=== PATIENT | male | born 1945 | race Caucasian/White ===

== ENCOUNTER 2017-01-12 21:14 | Emergency (ER) | payer OTHER, MEDICARE ==
[2017-01-12 21:19] VITALS: BP 167/99; PULSE 89; TEMP 98.3; BMI 25.6
--- NOTE | 2017-01-12 21:22 | PDOC ---
History of Present Illness - General History Source: Patient Exam Limitations: No Limitations - History of Present Illness Initial Comments: 01/12/17 21:43 The patient is a 71 year old male with significant past medical history of esophageal cancer (s/p gastric sleeve) and hypertension who presents to the emergency department with lower abdominal pain since yesterday. Patient notes that the pain is cramp like, intermittent, localized to the lower abdomen and radiates to the shoulders at worse intensity. Patient states that yesterday he had small bowel movement with no bowel movements today. He denies any rectal bleeding, vomiting or diarrhea. He denies any fever or chills. PAST MEDICAL HISTORY: esophageal cancer, hypertension PAST SURGICAL HISTORY: gastric sleeve FAMILY HISTORY: no pertinent history SOCIAL HISTORY: patient lives with family and is employed. MEDICATIONS: reviewed ALLERGIES: as per nursing notes General: No fevers or chills, no weakness, no weight loss HEENT: No change in vision. No sore throat,. No ear pain Cardiovascular: No chest pain or shortness of breath Respiratory: No cough, or wheezing. Gastrointestinal: +abdominal pain. No nausea, vomiting, diarrhea or constipation , No rectal bleeding Genitourinary: No dysuria, hematuria, or frequency Musculoskeletal: No joint or muscle pain or swelling Neurologic: No headache, vertigo, dizziness or loss of consciousness Skin: No rashes or easy bruising Allergic: no skin or latex allergy All other systems reviewed and normal General: Well-nourished well-developed individual, no acute distress HEENT: Throat: Normal, tonsils normal, no erythema or exudate Neck: Supple, no meningeal signs, no lymphadenopathy Eyes::Pupils equal reactive and round, extraocular motion intact Chest: Nontender to palpation Cardiac: S1-S2 normal, regular rate and rhythm, no murmurs rubs or gallops Respiratory: Lungs clear to auscultation bilateral Abdomen: (+)Soft, Slightly distended abdomen, decreased type H bowel sounds, no guarding or rebound. Extremities: Warm, dry, no cyanosis, clubbing, or edema Skin: No rashes Neuro: Alert and oriented x3, nonfocal exam, grossly intact, normal gait Psych: Normal mood and affect Documentation prepared by ZO Garcia, acting as durable medical equipment technician for Sari Allen MD. <Diane Padron - Last Filed: 01/12/17 21:49> - General History Source: Patient Exam Limitations: No Limitations - History of Present Illness Initial Comments: 01/13/17 01:08 Assessment and plan: This is a 71-year-old male who comes in complaining of abdominal pain. Patient has an extensive and somewhat complicated history of esophageal cancer with a gastric pull-through and partial resection. Patient is complaining of no bowel movement 2 days. Patient on his flat and upright appears to have a moderate amount of constipation. Otherwise patient's labs are normal. Patient had a CT scan that shows no acute intra-abdominal pathology. Discussed with patient options of being admitted overnight for observation patient really would refer to go home and try to do an enema and I will send him home with some mag citrate as well. Patient was counseled that if he does starts vomiting develops a fever his symptoms are not improved by the mag citrate and an enema that he should return to the ER for reevaluation. Patient does have an appointment with his doctor on Saturday. <Sari Allen I - Last Filed: 01/13/17 01:11> - General Chief Complaint: Pain Stated Complaint: ABD PAIN Time Seen by Provider: 01/12/17 21:17 Past History <Diane Padron - Last Filed: 01/12/17 21:49> - Past Medical History Cancer: Yes (h/o esophageal cancer) GI Disorders: Yes (acid reflux) HTN: Yes - Psycho/Social/Smoking Cessation Hx Anxiety: No Suicidal Ideation: No Smoking History: Never smoked Information on smoking cessation initiated: No Hx Alcohol Use: No Drug/Substance Use Hx: No <Sari Allen I - Last Filed: 01/13/17 01:11> - Past Medical History Allergies/Adverse Reactions: Allergies Allergy/AdvReac Type Severity Reaction Status Date / Time No Known Allergies Allergy Verified 01/12/17 21:16 Home Medications: Ambulatory Orders Amlodipine Besylate [Norvasc -] 5 mg PO DAILY 03/24/15 Ranitidine HCl [Zantac] 150 mg PO DAILY 03/24/15 Sucralfate [Carafate] 1 gm PO DAILY 03/24/15 *Physical Exam - Vital Signs Last Vital Signs Temp Pulse Resp BP Pulse Ox 98.3 F 89 18 167/99 99 01/12/17 21:15 01/12/17 21:15 01/12/17 21:15 01/12/17 21:15 01/12/17 21:15 <Diane Padron - Last Filed: 01/12/17 21:49> - Vital Signs Last Vital Signs Temp Pulse Resp BP Pulse Ox 98.3 F 89 18 167/99 99 01/12/17 21:15 01/12/17 21:15 01/12/17 21:15 01/12/17 21:15 01/12/17 21:15 <Sari Allen I - Last Filed: 01/13/17 01:11> ED Treatment Course - LABORATORY CBC & Chemistry Diagram: 01/12/17 21:42 01/12/17 21:42 <Diane Padron - Last Filed: 01/12/17 21:49> - LABORATORY CBC & Chemistry Diagram: 01/12/17 21:42 01/12/17 21:42 <Sari Allen I - Last Filed: 01/13/17 01:11> *DC/Admit/Observation/Transfer <Diane Padron - Last Filed: 01/12/17 21:49> - Discharge Dispostion Admit: No <Sari Allen I - Last Filed: 01/13/17 01:11> Diagnosis at time of Disposition: Abdominal pain Qualifiers: Abdominal location: lower abdomen, unspecified Qualified Code(s): R10.30 - Lower abdominal pain, unspecified - Discharge Dispostion Disposition: HOME Condition at time of disposition: Stable - Patient Instructions Additional Instructions: Purchase an [id number] enema from the pharmacy either a fleets or oil retention enema and use as directed. In addition to that in the morning and drink the mag citrate that you were given in the emergency room. If you develop a fever, started vomiting or worsening symptoms return to the emergency room. Return to the emergency department immediately with ANY new, persistent or worsening symptoms. Continue any medications as previously prescribed by your physician. You should follow up with your primary doctor as soon as possible regarding today's emergency department visit. . Please make sure your doctor reviews the results of your emergency evaluation. Thank you for coming to the Emergency Department today for your care. It was a pleasure to see you today. Please note that your evaluation is INCOMPLETE until you follow-up with your doctor.
[2017-01-12 21:58] LABS: BASOPHIL 1.1 % (0-2.0); EOSINOPHIL 1.7 % (0-4.5); MCH 30.8 pg (25.7-33.7); MCHC 34.1 g/dl (32.0-35.9); MEAN CELL VOLUME 90.4 fl (80-96); MEAN PLT VOLUME 7.4 fl (7.5-11.1); NEUTROPHILS 66.8 % (42.8-82.8); PLATELET COUNT 185 K/MM3 (134-434); RDW 12.4 % (11.9-15.9); WHITE BLOOD COUNT 7.4 K/mm3 (4.0-10.8)
[2017-01-12 22:12] LABS: ALBUMIN 4.2 g/dl (3.5-5.0); ALK PHOS 39 U/L (32-92); ANION GAP 8 (8-16); BILIRUBIN,TOTAL 0.8 mg/dl (0.2-1.0); CALCIUM 9.4 mg/dl (8.4-10.2); CO2 26 mmol/L (22-28); CREATININE 0.8 mg/dl (0.6-1.3); GLUCOSE,RANDOM 96 mg/dl (74-106); SGOT/AST 23 U/L (10-42); SGPT/ALT 18 U/L (10-40); TOT PROT 6.7 g/dl (6.4-8.3)
[2017-01-12] MEDS ORDERED: SODIUM CHLORIDE 1,000 ML IV ONE (22:21)
[2017-01-12] MEDS ORDERED: HYOSCYAMINE SULFATE 0.125 MG *ODT PO ONE (22:22)
[2017-01-12] MEDS ORDERED: HYOSCYAMINE SULFATE 0.125 MG *ODT ONE (22:24)
[2017-01-12] MEDS ORDERED: HYDROmorphone HCL CARPU-JECT 1 MG/1 ML DISP.SYRIN IVPUSH ONE (23:45)
[2017-01-12] MEDS ORDERED: HYDROmorphone HCL CARPU-JECT 1 MG/1 ML DISP.SYRIN ONE (23:48)
[2017-01-13] MEDS ORDERED: MAGNESIUM CITRATE 300 ML BOTTLE PO ONE (01:08)
[2017-01-13] MEDS ORDERED: MAGNESIUM CITRATE 300 ML BOTTLE ONE (01:12)
== END 2017-01-13 01:23 | disposition home or self-care (01) ==
LOC: FER 21:14
PROC: 3E033NZ Introduction of Analgesics, Hypnotics, Sedatives into Peripheral Vein, Percutaneous Approach (ICD-10-PCS; principal; 2017-01-12)
PROC: 3E0337Z Introduction of Electrolytic and Water Balance Substance into Peripheral Vein, Percutaneous Approach (ICD-10-PCS; 2017-01-12)
DX: R10.30 Lower abdominal pain, unspecified (principal); Z85.01 Personal history of malignant neoplasm of esophagus; Z98.84 Bariatric surgery status; I10 Essential (primary) hypertension
CPT/HCPCS: 36415; 71020-TC; 74020-TC; 74177-TC; 80053; 82550; 83690; 83880; 84484; 85025; 93005; 99283-25; G0378

== ENCOUNTER 2017-01-13 13:32 | Observation (INO) | payer OTHER, MEDICARE ==
[2017-01-13] MEDS ORDERED: FAMOTIDINE 20 MG/50 ML IVPB 50 ML IVPB ONE ×2 (13:48→14:31)
[2017-01-13] MEDS ORDERED: SODIUM CHLORIDE 500 ML IV ONE (13:48)
[2017-01-13] MEDS ORDERED: METOCLOPRAMIDE HCL INJECTION 10 MG/2 ML VIAL IVPB ONE (13:48)
--- NOTE | 2017-01-13 14:20 | PDOC ---
History of Present Illness <Valery Mcmahan - Last Filed: 01/13/17 16:41> - General History Source: Patient, Old Records Exam Limitations: No Limitations - History of Present Illness Initial Comments: 01/13/17 14:14 71-year-old male with history of esophageal CA status post resection 3 years ago with colon reconstruction presents for another visit for feeling generally unwell in the setting of lower abdominal pain. Patient was in his usual state of health, 2 days ago began developing lower abdominal discomfort in the setting of constipation, was seen here last night and blood tests/urinalysis/ CAT scan of the abdomen and pelvis showed large diaphragmatic hernia with trace pleural effusions, but otherwise no acute pathology within the abdomen. The patient was discharged with recommendations to take an enema last night, which he did without relief. He is now complaining of persistent discomfort cigarettes lower abdomen, feeling generally unwell - "maybe I'm getting dehydrated" - and presents again for a visit. The patient is scheduled to see his specialists at [facility] tomorrow, was actually scheduled for a CAT scan tomorrow as well. No specific cardiopulmonary complaints with regard to the trace effusions previously seen on CAT scan. Patient reports baseline dyspnea climbing stairs since the surgery 3 years ago, denies any chest pain or new shortness of breath, denies any fever/chills/night sweats/weight loss, denies any palpitations. <Bautista Owens - Last Filed: 01/13/17 16:48> - General Chief Complaint: Respiratory Stated Complaint: NOT FEELING GOOD Time Seen by Provider: 01/13/17 13:36 Past History <BlaynejustynaValery - Last Filed: 01/13/17 16:41> - Past Medical History Cancer: Yes (h/o esophageal cancer) GI Disorders: Yes (acid reflux) HTN: Yes - Psycho/Social/Smoking Cessation Hx Anxiety: No Suicidal Ideation: No Smoking History: Former smoker Have you smoked in the past 12 months: No If you are a former smoker, when did you quit?: IN COLLEGE Information on smoking cessation initiated: No Hx Alcohol Use: No Drug/Substance Use Hx: No <Bautista Owens - Last Filed: 01/13/17 16:48> - Past Medical History Allergies/Adverse Reactions: Allergies Allergy/AdvReac Type Severity Reaction Status Date / Time No Known Allergies Allergy Verified 01/13/17 13:39 Home Medications: Ambulatory Orders Amlodipine Besylate [Norvasc -] 5 mg PO DAILY 03/24/15 Ranitidine HCl [Zantac] 150 mg PO DAILY 03/24/15 Sucralfate [Carafate] 1 gm PO DAILY 03/24/15 Review of Systems - Review of Systems Constitutional: No: Chills, Fever Respiratory: Yes: SOB with Exertion (chronic). No: Cough Cardiac (ROS): No: Chest Pain, Edema, Palpitations ABD/GI: Yes: Constipated. No: Diarrhea, Nausea, Vomiting : No: Dysuria, Frequency, Flank Pain, Hematuria All Other Systems: Reviewed and Negative <Bautista Owens - Last Filed: 01/13/17 16:48> *Physical Exam - Vital Signs Last Vital Signs Temp Pulse Resp BP Pulse Ox 98.1 F 92 H 18 150/98 95 01/13/17 13:41 01/13/17 13:41 01/13/17 13:41 01/13/17 14:29 01/13/17 13:41 <Valery Mcmahan - Last Filed: 01/13/17 16:41> - Vital Signs Last Vital Signs Temp Pulse Resp BP Pulse Ox 98.1 F 92 H 18 151/100 95 01/13/17 13:41 01/13/17 13:41 01/13/17 13:41 01/13/17 13:41 01/13/17 13:41 - Physical Exam Comments: 01/13/17 14:17 Afebrile, normal vital signs. GENERAL: The patient is awake, alert, and fully oriented, in no acute distress whatsoever, he is comfortable and ambulating about the emergency department speaking full sentences. HEAD: Normal with no signs of trauma. EYES: PERRL, EOMI, sclera anicteric, conjunctiva clear with no pallor. ENT: oropharynx clear without exudates. Moist mucous membranes. NECK: Normal range of motion, supple without lymphadenopathy, JVD, or masses. LUNGS: Breath sounds equal, clear to auscultation bilaterally. No wheeze/ crackles. HEART: Occasionally irregular with normal rate, question premature beats, otherwise normal S1 and S2 without murmur or rub. ABDOMEN: Healed surgical scars. Soft/nontender/nondistended. BS wnl. No guarding or rebound. No palpable masses. No hepatosplenomegaly. No CVA tenderness. EXTREMITIES: Normal range of motion, no edema. 2+ distal pulses. No cords, erythema, or tenderness. NEUROLOGICAL: Cranial nerves II through XII grossly intact. Normal speech, normal gait. PSYCH: Normal mood, normal affect. SKIN: Warm, Dry, no rashes or lesions noted. <Bautista Owens - Last Filed: 01/13/17 16:48> Heart Score/ECG Review #1 ECG reviewed & interpreted by me at: 14:24 General ECG Interpretation: Sinus Rhythm (with APCs noted), Normal Rate (86), Normal Intervals, No acute ischemic changes <Bautista Owens - Last Filed: 01/13/17 16:48> ED Treatment Course - LABORATORY CBC & Chemistry Diagram: 01/13/17 14:37 01/13/17 14:37 - ADDITIONAL ORDERS Additional order review: Laboratory Results 01/13/17 01/13/17 15:30 14:37 Sodium 135 L Potassium 3.3 L Chloride 100 Carbon Dioxide 28 Anion Gap 7 L BUN 8 D Creatinine 0.6 D Creat Clearance w eGFR > 60 Random Glucose 124 H D Calcium 9.0 Total Bilirubin 1.1 H D AST 26 ALT 26 D Alkaline Phosphatase 43 Creatine Kinase 108 Troponin I < 0.03 L Total Protein 6.8 Albumin 4.0 Lipase < 22 L 01/13/17 14:37 RBC 5.04 MCV 90.2 MCHC 34.2 RDW 12.6 MPV 7.5 Neutrophils % 73.7 Lymphocytes % 15.8 D Monocytes % 8.0 Eosinophils % 1.0 Basophils % 1.5 - Medications Given in the ED: ED Medications Discontinued Medications Generic Name Dose Route Start Last Admin Trade Name Freq PRN Reason Stop Dose Admin Famotidine/Sodium Chloride 50 mls @ 100 mls/hr 01/13/17 13:48 01/13/17 14:36 Pepcid 20 Mg Premixed Ivpb - IVPB 01/13/17 14:17 100 mls/hr ONCE ONE Administration Sodium Chloride 500 mls @ 500 mls/hr 01/13/17 13:48 01/13/17 14:29 Normal Saline - IV 01/13/17 14:47 500 mls/hr ONCE ONE Administration Metoclopramide HCl 10 mg 01/13/17 13:48 01/13/17 14:36 Reglan Injection - IVPB 01/13/17 13:49 10 mg ONCE ONE Administration <Valery Mcmahan - Last Filed: 01/13/17 16:41> - LABORATORY CBC & Chemistry Diagram: 01/13/17 14:37 01/13/17 14:37 <RomanBautista - Last Filed: 01/13/17 16:48> Medical Decision Making - Medical Decision Making Called Dr. Oliveros @ 16:35 and case was discussed. <Valery Mcmahan - Last Filed: 01/13/17 16:41> - Medical Decision Making 01/13/17 14:18 71-year-old male with history of esophageal resection and reconstruction with transverse colon presents with lower abdominal pain in the setting of constipation for 2 days. Patient had a normal workup about 15 hours ago including a normal CAT scan, which is reassuring. His exam has no red flags or peritoneal findings, he is well-appearing though he states he feels generally unwell. Question early infectious process, no evidence for primary cardiopulmonary process given his long-standing symptoms. Will recheck labs to confirm any progression of an early process No indication at this time to repeat imaging, especially since the patient has CAT scans scheduled for tomorrow. If he does have a CT chest scheduled, that would be helpful in further identifying the diaphragmatic hernia and trace effusions. But his complaints of lower abdominal pain are not related to these findings. Trial of IV fluids, antacid, antiemetic Reassess and dispo accordingly 01/13/17 15:19 Na 135, ? mild dehydration. Remaining labs reassuring and wnl, no leukocytosis ( 8 currently, 7.4 last night). Awaiting lipase, will reassess and dispo. 01/13/17 15:34 Pt now complaining predominantly of feeling short of breath and a feeling of breathlessness. No chest pain. In light of trace effusions and large diaphragmatic hernia, ? whether this is all hernia or cardiopulmonary process. Would check CT chest with contrast but had IV less than 24h ago. Given symptoms , will monitor on obs tele overnight with plans for CT chest tomorrow. Pt agrees. Trop/BNP added to prior workup, will f/u then proceed with admission. Dr. Boucher is PMD. 01/13/17 16:05 On my prelim review of the CXR, there is large hiatal hernia with air/fluid levels, obscuring the angles but otherwise no clear infiltrate. Trop pending, then will call [facility] for admission. 01/13/17 16:47 Dr. Boucher admits to hospitalist on weekends. Accepted for obs tele by MICHELLE Sprague, Dr. Nathan. <Bautista Owens - Last Filed: 01/13/17 16:48> *DC/Admit/Observation/Transfer <Valery Mcmahan - Last Filed: 01/13/17 16:41> - Discharge Dispostion Admit: Yes <Bautista Owens - Last Filed: 01/13/17 16:48> Diagnosis at time of Disposition: Lower abdominal pain, Shortness of breath - Discharge Dispostion Condition at time of disposition: Fair
[2017-01-13 14:44] LABS: BASOPHIL 1.5 % (0-2.0); MCH 30.8 pg (25.7-33.7); MCHC 34.2 g/dl (32.0-35.9); MEAN CELL VOLUME 90.2 fl (80-96); MEAN PLT VOLUME 7.5 fl (7.5-11.1); NEUTROPHILS 73.7 % (42.8-82.8); PLATELET COUNT 181 K/MM3 (134-434); RDW 12.6 % (11.9-15.9)
[2017-01-13 15:07] LABS: ALK PHOS 43 U/L (32-92); ANION GAP 7 (8-16); BILIRUBIN,TOTAL 1.1 mg/dl (0.2-1.0); CO2 28 mmol/L (22-28); CREATININE 0.6 mg/dl (0.6-1.3); GLUCOSE,RANDOM 124 mg/dl (74-106); SGOT/AST 26 U/L (10-42); SGPT/ALT 26 U/L (10-40); TOT PROT 6.8 g/dl (6.4-8.3)
[2017-01-13] MEDS ORDERED: POTASSIUM CHLORIDE TABS 20 MEQ TABLET.ER (FP) PO ONE ×2 (16:00→16:36)
[2017-01-13 16:02] LABS: CPK(DFH) 108 IU/L (38-174)
[2017-01-13 16:20] LABS: TROPONIN I (DFP) < 0.03 ng/ml (0.03-0.50)
--- NOTE | 2017-01-13 18:19 | DS ---
Physical Exam: I received signout from the ED regarding Mr. Richardson and placed admission orders, but did not perform a full history and physical. On arrival to his inpatient room, the patient informed us that he spoke with his dental professional at [facility] and that he wishes to sign out so that he can go to the [facility] ED instead. His daughter is here to drive him. I explained to Mr. Middleton that this may not be safe given his shortness of breath and offered to proceed with admission and arrange for a transfer via ambulance, but he declines. He wishes to sign out against medical advice. He agrees to seek the nearest emergency care or call 911 if worsening en route. He understands that he is risking decompensation and possibly and again declines to continue inpatient services here. Conversation witnessed by nursing supervisor spring up Cindy. Date of Admission:01/13/17 Date of Discharge: 01/13/17 Minutes to complete discharge: 35 Discharge Summary Reason For Visit: LOWER BACK PAIN & SOB Current Active Problems Lower abdominal pain (Acute) Shortness of breath (Acute) Condition: Fair - Home Medications Comprehensive Discharge Medication List: Ambulatory Orders Amlodipine Besylate [Norvasc -] 5 mg PO DAILY 03/24/15 Ranitidine HCl [Zantac] 150 mg PO DAILY 03/24/15 Sucralfate [Carafate] 1 gm PO DAILY 03/24/15 This patient is new to me today: Yes Date on this admission: 01/13/17 Emergency Visit: Yes ED Registration Date: 01/13/17 Care time: The patient presented to the Emergency Department on the above date and was hospitalized for further evaluation of their emergent condition. Critical Care patient: No - Discharge Referral Referred to [facility] Med P.C.: No
[2017-01-13 18:25] VITALS: BP 151/98; PULSE 93; TEMP 98; BMI 26.1
--- NOTE | 2017-01-14 08:26 | EKG ---
Test Reason : Blood Pressure : / mmHG Vent. Rate : 086 BPM Atrial Rate : 086 BPM P-R Int : 176 ms QRS Dur : 110 ms QT Int : 382 ms P-R-T Axes : 008 -44 023 degrees QTc Int : 457 ms SINUS RHYTHM WITH PREMATURE ATRIAL COMPLEXES LEFT AXIS DEVIATION ABNORMAL ECG NO PREVIOUS ECGS AVAILABLE Confirmed by CARLOS MANUEL PASTOR MD ([id number]) on 01/14/2017 8:26:17 AM Referred By: ARTEM Confirmed By:CARLOS MANUEL PASTOR MD
[2017-01-14] MEDS ORDERED: amLODIPine BESYLATE 5 MG TABLET (FP) PO SCH (10:00)
[2017-01-14] MEDS ORDERED: SUCRALFATE 1 GM TABLET (FP) PO SCH (10:00)
[2017-01-14] MEDS ORDERED: RANITIDINE HCL 150 MG TABLET (FP) PO SCH (10:00)
[2017-01-14] MEDS ORDERED: ENOXAPARIN NA (PORCINE) 40 MG/0.4 ML DISP.SYRIN SQ SCH (10:00)
== END 2017-01-13 18:20 | disposition left against medical advice (07) ==
LOC: FER 13:32 → FM/S 17:39
PROVIDERS: ADMIT Internal Medicine; ATTEND Registered Nurse Emergency
PROC: 3E033GC Introduction of Other Therapeutic Substance into Peripheral Vein, Percutaneous Approach (ICD-10-PCS; principal; 2017-01-13)
DX: R10.30 Lower abdominal pain, unspecified (principal); R06.02 Shortness of breath; I10 Essential (primary) hypertension; K21.9 Gastro-esophageal reflux disease without esophagitis; Z85.01 Personal history of malignant neoplasm of esophagus; Z87.891 Personal history of nicotine dependence
CPT/HCPCS: 36415; 71020-TC; 80053; 82550; 83690; 83880; 84484; 85025; 93005; 99283-25; G0378

== ENCOUNTER 2018-03-10 23:06 | Emergency (ER) | payer OTHER, MEDICARE ==
[2018-03-10 23:25] VITALS: BMI 25.0
[2018-03-10] MEDS ORDERED: SODIUM CHLORIDE 1,000 ML IV STA (23:52)
[2018-03-10] MEDS ORDERED: ONDANSETRON 4 MG/2 ML VIAL IVPUSH STA (23:52)
--- NOTE | 2018-03-10 23:52 | PDOC ---
History of Present Illness - General History Source: Patient Exam Limitations: No Limitations - History of Present Illness Initial Comments: 03/11/18 00:35 The patient is a 72 year old male, with a significant past medical history of esophageal CA (s/p resection 4 years ago), who presents to the emergency department with, sudden onset right lower quadrant pain and right pelvic. As per patient, the pain onset at 9pm as severe. He attempted to give himself a fleet enema, without relief. The patient also endorses associated nausea without emesis. He denies any history of a inguinal hernia. He denies any recent fevers, chills , headache or dizziness. He denies any recent vomit. He denies any recent chest pain or shortness of breath. He denies any recent dysuria, frequency, urgency or hematuria. Allergies: NKA Past surgical history: Esophageal resection. Hiatal hernia repair. Primary Care Physician: Dr. Boucher <Franco Urbina - Last Filed: 03/11/18 01:49> <Jyotsna Jack - Last Filed: 03/11/18 02:22> - General Chief Complaint: Pain Stated Complaint: PAIN, ACUTE Time Seen by Provider: 03/10/18 23:40 Past History <Franco Urbina - Last Filed: 03/11/18 01:49> - Past Medical History Cancer: Yes (h/o esophageal cancer) Cardiac Disorders: Yes COPD: No GI Disorders: Yes (acid reflux) HTN: Yes - Suicide/Smoking/Psychosocial Hx Smoking History: Never smoked Have you smoked in the past 12 months: No If you are a former smoker, when did you quit?: IN COLLEGE Information on smoking cessation initiated: No Hx Alcohol Use: Yes (1 glass daily) Drug/Substance Use Hx: No Substance Use Type: None Hx Substance Use Treatment: No <Jyotsna Jack - Last Filed: 03/11/18 02:22> - Past Medical History Allergies/Adverse Reactions: Allergies Allergy/AdvReac Type Severity Reaction Status Date / Time No Known Allergies Allergy Verified 03/10/18 23:23 Home Medications: Ambulatory Orders Amlodipine Besylate [Norvasc -] 5 mg PO DAILY 03/24/15 Ranitidine HCl [Zantac] 150 mg PO DAILY 03/24/15 Sucralfate [Carafate] 1 gm PO DAILY 03/24/15 Meloxicam [Mobic] 15 mg PO DAILY 30 Days #30 tablet MDD 15mg 12/19/17 Ibuprofen [Motrin -] 600 mg PO TID PRN #30 tablet 03/11/18 Ondansetron [Zofran *Odt*] 8 mg SL TID PRN #21 od.tablet 03/11/18 Oxycodone HCl/Acetaminophen [Percocet 5-325 mg Tablet] 1 tab PO Q6H PRN #4 tablet MDD 4 03/11/18 Review of Systems - Review of Systems Able to Perform ROS?: Yes Comments:: 03/11/18 00:35 CONSTITUTIONAL: Absent: fever, no chills, no fatigue EYES: Absent: visual changes ENT: Absent: ear pain, no sore throat CARDIOVASCULAR: Absent: chest pain, no palpitations RESPIRATORY: Absent: cough, no SOB GI: Present: RLQ and R. pelvic pain. Absent: no nausea, no vomiting, no constipation, no diarrhea GENITOURINARY: Absent: dysuria, no frequency, no hematuria MUSKULOSKELETAL: Absent: back pain, no arthralgia, no myalgia SKIN: Absent: rash NEURO: Absent: headache <Franco Urbina - Last Filed: 03/11/18 01:49> *Physical Exam - Vital Signs Last Vital Signs Temp Pulse Resp BP Pulse Ox 97.5 F L 61 18 133/73 100 03/10/18 23:19 03/10/18 23:19 03/10/18 23:19 03/10/18 23:19 03/10/18 23:19 - Physical Exam Comments: 03/11/18 00:36 +GENERAL: Uncomfortably appearing. Well developed, well nourished. Awake and alert. HEENT: Normocephalic, atraumatic. PERRLA, EOMI. No conjunctival pallor. Sclera are non- icteric. Moist mucous membranes. Oropharynx is clear. NECK: Supple. Full ROM. No JVD. Carotid pulses 2+ and symmetric, without bruits. No thyromegaly. No lymphadenopathy. CARDIOVASCULAR: Regular rate and rhythm. No murmurs, rubs, or gallops. Distal pulses are 2+ and symmetric. PULMONARY: No evidence of respiratory distress. Lungs clear to auscultation bilaterally. No wheezing, rales or rhonchi. +ABDOMINAL: RLQ and right suprapubic tenderness. Soft. Non-distended. No rebound or guarding. No organomegaly. Normoactive bowel sounds. MUSCULOSKELETAL Normal range of motion at all joints. No bony deformities or tenderness. No CVA tenderness. EXTREMITIES: No cyanosis. No clubbing. No edema. No calf tenderness. SKIN: Warm and dry. Normal capillary refill. No rashes. No jaundice. NEUROLOGICAL: Alert, awake, appropriate. Cranial nerves 2-12 intact. No deficits to light touch and temperature in face, upper extremities and lower extremities. No motor deficits in the in face, upper extremities and lower extremities. Normoreflexic in the upper and lower extremities. Normal speech. Toes are down- going bilaterally. Gait is normal without ataxia. PSYCHIATRIC: Cooperative. Good eye contact. Appropriate mood and affect. <Franco Urbina - Last Filed: 03/11/18 01:49> - Vital Signs Last Vital Signs Temp Pulse Resp BP Pulse Ox 97.5 F L 61 18 133/73 100 03/10/18 23:19 03/10/18 23:19 03/10/18 23:19 03/10/18 23:19 03/10/18 23:19 <Jyotsna Jack - Last Filed: 03/11/18 02:22> ED Treatment Course - LABORATORY CBC & Chemistry Diagram: 03/11/18 00:11 03/11/18 00:11 - RADIOLOGY Radiograph Interpretation: 03/11/18 01:49 EXAM: CT abdomen and pelvis without contrast HISTORY: Rule out kidney stones or appendicitis COMPARISON: None. FINDINGS: Lung bases are clear other than mild dependent atelectasis. The visualized cardiac chambers are normal size and configuration. There is a 4.5 cm ascending aortic aneurysm. Status post esophagectomy and colonic pull-through. There is mild to moderate right hydronephrosis and perinephric inflammation secondary to a 4 mm distal UVJ stone. There are multiple left renal cysts small nonobstructing left renal stones. Tiny hepatic hypodensities are too small to characterize. Normal unenhanced, gallbladder, pancreas, spleen, adrenal glands . The stomach and abdominal small and large bowel are normal. There is no aortic aneurysm. Retroperitoneal, pelvic and inguinal randy calcifications are likely due to old infection/granulomatous disease The pelvic small and large bowel are normal. The appendix is normal. The urinary bladder is not inflamed. The prostate gland is moderately enlarged. No pelvic free fluid is identified. IMPRESSION: Mild to to moderate right hydronephrosis and perinephric inflammation secondary to a 4 mm distal UVJ stone. Additional small nodules and left renal stones. 4.5 cm ascending aortic aneurysm. Moderate prostate enlargement. Individualized dose optimization techniques were used for this CT. Read by: Geovanni Hernandez MD - Medications Given in the ED: ED Medications Discontinued Medications Generic Name Dose Route Start Last Admin Trade Name Freq PRN Reason Stop Dose Admin Morphine Sulfate 2 mg 03/10/18 23:53 03/11/18 00:25 Morphine Injection - IVPUSH 03/10/18 23:54 2 mg ONCE ONE Administration Ondansetron HCl 4 mg 03/10/18 23:52 03/11/18 00:25 Zofran Injection IVPUSH 03/10/18 23:53 4 mg ONCE STA Administration <Franco Urbina - Last Filed: 03/11/18 01:49> - LABORATORY CBC & Chemistry Diagram: 03/11/18 00:11 03/11/18 00:11 <Jyotsna Jack - Last Filed: 03/11/18 02:22> Medical Decision Making - Medical Decision Making 03/11/18 02:14 CAT scan shows a 4 mm kidney stone on the left UVJ. Hydronephrosis There is also a discussion about the 4.5 cm ascending aortic dissection. I spoke to the patient at length and he said he had a recent CAT scan done at [facility] fairly and it did show the same caliber ascending aortic aneurysm. 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 <Franco Urbina - Last Filed: 03/11/18 01:49> <Jyotsna Jack - Last Filed: 03/11/18 02:22> Diagnosis at time of Disposition: Kidney stone on right side - Discharge Dispostion Disposition: HOME Condition at time of disposition: Stable - Prescriptions Prescriptions: Ibuprofen [Motrin -] 600 mg PO TID PRN #30 tablet PRN Reason: Pain Level 4 - 6 Ondansetron [Zofran *Odt*] 8 mg SL TID PRN #21 od.tablet PRN Reason: Nausea And/Or Vomiting Oxycodone HCl/Acetaminophen [Percocet 5-325 mg Tablet] 1 tab PO Q6H PRN #4 tablet MDD 4 PRN Reason: Severe Pain - Referrals Referrals: Iggy De Leon MD., [Staff Physician] - Guero Saez MD [Staff Physician] - Mary Ellis MD [Staff Physician] - Forest Khalil MD [Staff Physician] - - Patient Instructions Printed Discharge Instructions: DI for Kidney Stones Additional Instructions: 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
[2018-03-10] MEDS ORDERED: morphine CARPU-JECT 2 MG/1 ML DISP.SYRIN IVPUSH ONE (23:53)
[2018-03-11] MEDS ORDERED: ONDANSETRON 4 MG/2 ML VIAL ONE (00:19)
[2018-03-11] MEDS ORDERED: morphine SULFATE 4 MG/ML VIAL ONE (00:19)
[2018-03-11 00:34] LABS: BASO % 0.5 % (0-2.0); EOS % 0.3 % (0-4.5); HEMATOCRIT 44.8 % (35.4-49); HEMOGLOBIN 15.4 GM/dL (11.7-16.9); LYMPH % 10.6 % (8-40); MCH 31.6 pg (25.7-33.7); MCHC 34.4 g/dl (32.0-35.9); MEAN CELL VOLUME 91.8 fl (80-96); MEAN PLT VOLUME 7.5 fl (7.5-11.1); MONO % 3.6 % (3.8-10.2); PLATELET COUNT 180 K/MM3 (134-434); RBC 4.88 M/mm3 (4.00-5.60); RDW 13.4 % (11.9-15.9); WHITE BLOOD COUNT 9.6 K/mm3 (4.0-10.0)
[2018-03-11 00:52] LABS: URINE APPEARANCE CLEAR; URINE BILIRUBIN NEGATIVE (<2.0 mg/dL); URINE COLOR YELLOW; URINE GLUCOSE (UA) NEGATIVE (NEGATIVE); URINE KETONE TRACE (NEGATIVE); URINE LEUK ESTERASE NEGATIVE (NEGATIVE); URINE NITRITE NEGATIVE (NEGATIVE); URINE PROTEIN NEGATIVE (NEGATIVE); URINE UROBILINOGEN NEGATIVE mg/dL (0.2-1.0)
[2018-03-11 00:55] LABS: ALBUMIN 3.9 g/dl (3.4-5.0); ALK PHOS 55 U/L (45-117); ANION GAP 9 MMOL/L (8-16); BILIRUBIN,TOTAL 0.4 mg/dL (0.2-1); BLOOD UREA NITROGEN 24 mg/dL (7-18); CALCIUM 8.9 mg/dL (8.5-10.1); CHLORIDE 109 mmol/L (98-107); CO2 24 mmol/L (21-32); CREATININE 1.3 mg/dL (0.55-1.3); GLUCOSE,RANDOM 144 mg/dL (74-106); LIPASE 32 U/L (73-393); POTASSIUM 4.3 mmol/L (3.5-5.1); SGOT/AST 21 U/L (15-37); SGPT/ALT 30 U/L (13-61); SODIUM 142 mmol/L (136-145); TOT PROT 7.2 g/dl (6.4-8.2)
[2018-03-11 00:55] LABS: URINE MUCUS RARE
[2018-03-11 00:57] LABS: INR 0.94 (0.83-1.09); PROTHROMBIN TIME (PATIENT) 10.6 SEC (9.7-13.0)
[2018-03-11 03:03] VITALS: BP 133/72; PULSE 73; TEMP 98.2
== END 2018-03-11 03:02 | disposition home or self-care (01) ==
LOC: JER 23:06
PROC: 3E033NZ Introduction of Analgesics, Hypnotics, Sedatives into Peripheral Vein, Percutaneous Approach (ICD-10-PCS; principal; 2018-03-10)
PROC: 3E033GC Introduction of Other Therapeutic Substance into Peripheral Vein, Percutaneous Approach (ICD-10-PCS; 2018-03-10)
PROC: 3E0337Z Introduction of Electrolytic and Water Balance Substance into Peripheral Vein, Percutaneous Approach (ICD-10-PCS; 2018-03-10)
DX: N23 Unspecified renal colic (principal); Z85.01 Personal history of malignant neoplasm of esophagus; I10 Essential (primary) hypertension; F99 Mental disorder, not otherwise specified; K21.9 Gastro-esophageal reflux disease without esophagitis; Z87.891 Personal history of nicotine dependence
CPT/HCPCS: 36415; 74176; 80053; 81003; 81015; 83690; 85025; 85610; 87086; 96361; 96374; 96375; 99282-25; J7030

== ENCOUNTER 2022-06-07 06:25 | Day surgery (SDC) | payer OTHER, MEDICARE ==
[2022-06-05 18:21] VITALS: BMI 25.7
[2022-06-07] MEDS ORDERED: TRYPAN BLUE 0.5 ML DISP.SYRIN ONE (07:08)
[2022-06-07] MEDS ORDERED: PHENYLEPHRINE/KETOROLAC 4 ML VIAL IO ONE (07:08)
[2022-06-07] MEDS ORDERED: LIDOCAINE HCL/PF 1% SDV 5ML VIAL ONE (07:08)
[2022-06-07] MEDS ORDERED: EPINEPHrine/PF 1 MG/1 ML (1:1,000) AMPULE ONE (07:08)
[2022-06-07] MEDS ORDERED: NEO/POLYMYX B SULF/DEXAMETH OPHTHALMIC 5ML BOTTLE ONE (07:09)
[2022-06-07] MEDS ORDERED: BSS (NA/CA/MG/K) BALANCED SALT SOLUTION OPHTH SOLN 15 ML BOTTLE ONE ×2 (07:09)
[2022-06-07] MEDS ORDERED: CARBACHOL 0.01% INTRA-OCULAR 1.5 ML VIAL ONE (07:09)
[2022-06-07] MEDS ORDERED: ACETYLCHOLINE 1:100 INTRA-OCUL 20 MG/2 ML KIT ONE (07:09)
[2022-06-07] MEDS ORDERED: TETRACAINE 0.5% OPHTH SOLN 2 ML BOTTLE ONE (07:09)
[2022-06-07] MEDS: CIPROFLOXACIN 0.3% EYE DROPS 5 ML BOTTLE ONE ×3 (07:10→07:20)
[2022-06-07] MEDS: PHENYLEPHRINE 2.5% OPHTH SOLN 15 ML BOTTLE ONE ×3 (07:10→07:20)
[2022-06-07] MEDS: TROPICAMIDE 1% OPHTH SOLN 15 ML BOTTLE ONE ×3 (07:10→07:20)
[2022-06-07] MEDS: CYCLOPENTOLATE 2% OPHTH SOLN 2 ML BOTTLE ONE ×3 (07:10→07:20)
[2022-06-07 07:16] VITALS: RESP 17
[2022-06-07] MEDS ORDERED: MIDAZOLAM HCL 2 MG/2 ML SINGLE DOSE VIAL ONE (07:59)
[2022-06-07] MEDS ORDERED: ONDANSETRON 4 MG/2 ML VIAL ONE (08:20)
[2022-06-07 09:04] VITALS: BP 106/67; PULSE 67; TEMP 98
== END 2022-06-07 09:45 | disposition home or self-care (01) ==
LOC: FASU 06:25
PROVIDERS: ATTEND Ophthalmology
PROC: 08RK3JZ Replacement of Left Lens with Synthetic Substitute, Percutaneous Approach (ICD-10-PCS; principal; 2022-06-07 08:24)
DX: H26.8 Other specified cataract (principal)
CPT/HCPCS: 66984; V2632; J1097

== ENCOUNTER 2022-06-27 08:15 | Day surgery (SDC) | payer OTHER, MEDICARE ==
[2022-06-22 13:47] VITALS: BMI 25.7
[2022-06-27] MEDS ORDERED: BSS (NA/CA/MG/K) BALANCED SALT SOLUTION OPHTH SOLN 15 ML BOTTLE ONE (08:38)
[2022-06-27] MEDS ORDERED: LIDOCAINE HCL/PF 1% SDV 5ML VIAL ONE (08:38)
[2022-06-27] MEDS ORDERED: CARBACHOL 0.01% INTRA-OCULAR 1.5 ML VIAL ONE (08:38)
[2022-06-27] MEDS ORDERED: NEO/POLYMYX B SULF/DEXAMETH OPHTHALMIC 5ML BOTTLE ONE (08:38)
[2022-06-27 09:45] VITALS: TEMP 97.8
[2022-06-27] MEDS: CYCLOPENTOLATE 2% OPHTH SOLN 2 ML BOTTLE ONE ×3 (09:45→09:55)
[2022-06-27] MEDS: PHENYLEPHRINE 2.5% OPHTH SOLN 15 ML BOTTLE ONE ×3 (09:45→09:55)
[2022-06-27] MEDS: TROPICAMIDE 1% OPHTH SOLN 15 ML BOTTLE ONE ×3 (09:45→09:55)
[2022-06-27] MEDS: CIPROFLOXACIN 0.3% EYE DROPS 5 ML BOTTLE ONE ×3 (09:45→09:55)
[2022-06-27] MEDS ORDERED: MIDAZOLAM HCL 2 MG/2 ML SINGLE DOSE VIAL ONE (10:51)
[2022-06-27 11:28] VITALS: PULSE 68; RESP 20
[2022-06-27 12:01] VITALS: BP 112/68
== END 2022-06-27 12:00 | disposition home or self-care (01) ==
LOC: FASU 08:15
PROVIDERS: ATTEND Ophthalmology
PROC: 08RJ3JZ Replacement of Right Lens with Synthetic Substitute, Percutaneous Approach (ICD-10-PCS; principal; 2022-06-27 10:56)
DX: H26.8 Other specified cataract (principal)
CPT/HCPCS: 66984; V2632

== ENCOUNTER 2022-11-13 18:00 | Emergency (ER) | payer OTHER, MEDICARE ==
[2022-11-13 18:11] VITALS: BP 109/71; PULSE 78; RESP 20; TEMP 98.2; BMI 26.6
[2022-11-13] MEDS ORDERED: CEPHALEXIN 250 MG/5 ML ORAL SUSPENSION PO ONE (18:31)
[2022-11-13] MEDS ORDERED: DIPHTH,PERTUSS(ACELL),TET 0.5 ML DISP.SYRIN IM ONE ×2 (18:31→18:34)
[2022-11-13] MEDS ORDERED: CEPHALEXIN MONOHYDRATE 500 MG CAPSULE (UD) ONE (18:34)
== END 2022-11-13 19:46 | disposition home or self-care (01) ==
LOC: FER 18:00
PROC: 0XQRXZZ Repair Left Middle Finger, External Approach (ICD-10-PCS; principal; 2022-11-13)
PROC: 3E0234Z Introduction of Serum, Toxoid and Vaccine into Muscle, Percutaneous Approach (ICD-10-PCS; 2022-11-13)
DX: S61.213A Laceration without foreign body of left middle finger without damage to nail, initial encounter (principal); W26.8XXA Contact with other sharp object(s), not elsewhere classified, initial encounter; Y28.9XXA Contact with unspecified sharp object, undetermined intent, initial encounter; Y93.9 Activity, unspecified; Y92.009 Unspecified place in unspecified non-institutional (private) residence as the place of occurrence of the external cause
CPT/HCPCS: 12001-25; 73140-TC-LT-FY; 90471; 90715; 99283-25